=== PATIENT | female | born 1950 | race Caucasian/White ===

== ENCOUNTER 2021-12-30 20:32 | Inpatient (IN) | payer MEDICARE ==
[2021-12-30 23:00] VITALS: BMI 26.4
[2021-12-30] MEDS ORDERED: Fluticasone Propionate Nasal Spray 16 gm Bottle NASAL PRN (23:33)
[2021-12-30] MEDS ORDERED: Ondansetron PF 4 MG/2 ML Vial IVP PRN (23:38)
[2021-12-30] MEDS ORDERED: Guaifenesin DM 100-10/5 ML UDCUP PO PRN (23:38)
[2021-12-30] MEDS ORDERED: Acetaminophen 650 MG Suppository PR PRN (23:38)
[2021-12-30] MEDS ORDERED: Ondansetron ODT 4 MG TAB PO PRN (23:38)
[2021-12-30] MEDS ORDERED: Sodium Chloride 0.9% 1,000 ML IV SCH (23:45)
[2021-12-31] MEDS ORDERED: Melatonin 3 MG TAB PO PRN (01:01)
[2021-12-31] MEDS: Thyroid 30 MG TAB PO SCH (09:25)
[2021-12-31] MEDS: Aspirin Chewable 81 MG TAB PO SCH (09:26)
[2021-12-31] MEDS: PARoxetine 20 MG TAB PO SCH (09:26)
[2021-12-31 09:54] LABS: #Eosinphils 0.1 thou/uL (0.0-0.7); #Lymphocytes 0.7 thou/uL (1.20-3.40); #Monocytes 0.9 thou/uL (0.11-0.59); #Neutrophils 4.8 thou/uL (1.40-6.50); %Basophils 0.7 % (0.0-1.0); %Eosinophils 2.3 % (0.0-10.0); %Lymphocytes 10.1 % (21.0-51.0); %Monocytes 13.9 % (0.0-10.0); %Neutrophils 73.1 % (42.0-75.0); Hemoglobin 13.5 g/dL (12.0-16.0); Mean Corpuscular HGB CONC 32.4 g/dL (32.0-36.0); Mean Corpuscular Volume 98.8 fL (78.0-98.0); Mean Platelet Volume 7.1 fL (7.4-10.4); Platelet Count 264 thou/uL (130-400); Red Blood Cell (RBC) Count 4.21 mill/uL (4.20-5.40); White Blood Cell (WBC) Count 6.5 thou/uL (4.8-10.8)
[2021-12-31 10:05] LABS: ALT (SGPT) 21 U/L (8-55); AST (SGOT) 17 U/L (5-34); Albumin 3.6 g/dL (3.4-4.8); Alkaline Phosphatase 91 U/L (40-110); Anion Gap 14 mmol/L (10-20); BUN (Urea Nitrogen) 22 mg/dL (9.8-20.1); Bilirubin, Total 0.8 mg/dL (0.2-1.2); Calc. Creatinine Clearance 47 mL/min (70-130); Calcium 10.1 mg/dL (7.8-10.44); Carbon Dioxide 24 mmol/L (23-31); Chloride 100 mmol/L (98-107); Estimated GFR 51; Globulin 3.1 g/dL (2.4-3.5); Glucose 104 mg/dL (83-110); Potassium 4.8 mmol/L (3.5-5.1); Protein, Total 6.7 g/dL (5.8-8.1); Sodium 133 mmol/L (136-145)
[2021-12-31] MEDS: Sodium Chloride 0.9% 1,000 ML IV SCH (11:22)
[2021-12-31] MEDS: Acetaminophen 325 MG TAB PO PRN (19:40)
[2022-01-01] MEDS: Sodium Chloride 0.9% 1,000 ML IV SCH (02:31)
[2022-01-01] MEDS: Aspirin Chewable 81 MG TAB PO SCH (09:04)
[2022-01-01] MEDS: Thyroid 30 MG TAB PO SCH (09:04)
[2022-01-01] MEDS: Lisinopril 10 MG TAB PO SCH ×2 (09:04→21:11)
[2022-01-01] MEDS: Amlodipine 5 MG TAB PO SCH (09:04)
[2022-01-01] MEDS: PARoxetine 20 MG TAB PO SCH (09:04)
[2022-01-01] MEDS: Acetaminophen 325 MG TAB PO PRN ×2 (09:07→21:11)
[2022-01-01] MEDS ORDERED: HYDROcodone/Acetaminophen 5/325 mg Tablet PO PRN (12:27)
[2022-01-01] MEDS ORDERED: Lidocaine 5% Patch TD SCH (13:00)
[2022-01-01] MEDS ORDERED: Transdermal Patch Removal TOP SCH (21:00)
[2022-01-02 05:30] LABS: Anion Gap 11 mmol/L (10-20); BUN (Urea Nitrogen) 19 mg/dL (9.8-20.1); Calc. Creatinine Clearance 50 mL/min (70-130); Carbon Dioxide 20 mmol/L (23-31); Cardiac Risk 3.8 (Less than 4.5); Chloride 104 mmol/L (98-107); Cholesterol 165 mg/dl (< 200 Desired); Estimated GFR 54; Glucose 93 mg/dL (83-110); HDL Cholesterol 43 mg/dL (>60 Neg Risk); LDL Cholesterol, Calculated 98 mg/dL; Sodium 131 mmol/L (136-145); Triglycerides 118 mg/dL (Less than 150)
[2022-01-02 08:25] VITALS: BP 140/71; TEMP 97.7
[2022-01-02] MEDS ORDERED: Lidocaine 5% Patch TD SCH (09:00)
[2022-01-02] MEDS: Thyroid 30 MG TAB PO SCH (09:01)
[2022-01-02] MEDS: PARoxetine 20 MG TAB PO SCH (09:01)
[2022-01-02] MEDS: Lisinopril 10 MG TAB PO SCH (09:01)
[2022-01-02] MEDS: Aspirin Chewable 81 MG TAB PO SCH (09:01)
[2022-01-02] MEDS: Amlodipine 5 MG TAB PO SCH (09:01)
== END 2022-01-02 11:32 | disposition home or self-care (01) | DRG 312 ==
LOC: 2SW 20:32 → OBSVTOIN 12-31 16:05
PROVIDERS: ADMIT Hospitalist; ATTEND Hospitalist
DX: R55 Syncope and collapse (principal); N17.9 Acute kidney failure, unspecified; R42 Dizziness and giddiness; R00.1 Bradycardia, unspecified; Z20.822 Contact with and (suspected) exposure to COVID-19; I10 Essential (primary) hypertension; E03.9 Hypothyroidism, unspecified; F32.A Depression, unspecified; T44.7X5A Adverse effect of beta-adrenoreceptor antagonists, initial encounter; T46.1X5A Adverse effect of calcium-channel blockers, initial encounter; Z88.5 Allergy status to narcotic agent; Z88.0 Allergy status to penicillin; Z88.8 Allergy status to other drugs, medicaments and biological substances; Z79.82 Long term (current) use of aspirin; Z79.899 Other long term (current) drug therapy; Z79.890 Hormone replacement therapy; Z90.49 Acquired absence of other specified parts of digestive tract; Z98.42 Cataract extraction status, left eye; Z98.41 Cataract extraction status, right eye
CPT/HCPCS: 36415; 70450; 80048; 80053; 80061; 85025; 93306; 93880; 97139; G0378; J7050

== ENCOUNTER 2022-01-02 14:43 | Observation (INO) | payer MEDICARE ==
[2022-01-02 15:28] LABS: #Basophils 0.1 thou/uL (0.0-0.2); #Eosinphils 0.2 thou/uL (0.0-0.7); #Lymphocytes 0.7 thou/uL (1.20-3.40); #Monocytes 0.8 thou/uL (0.11-0.59); #Neutrophils 9.1 thou/uL (1.40-6.50); %Basophils 0.5 % (0.0-1.0); %Eosinophils 1.5 % (0.0-10.0); %Monocytes 7.3 % (0.0-10.0); %Neutrophils 84.7 % (42.0-75.0); Hemoglobin 13.2 g/dL (12.0-16.0); Mean Corpuscular HGB CONC 33.7 g/dL (32.0-36.0); Mean Corpuscular Hemoglobin 33.7 pg (27.0-31.0); Platelet Count 254 thou/uL (130-400); Red Blood Cell (RBC) Count 3.92 mill/uL (4.20-5.40); White Blood Cell (WBC) Count 10.7 thou/uL (4.8-10.8)
[2022-01-02 15:52] LABS: ALT (SGPT) 17 U/L (8-55); AST (SGOT) 17 U/L (5-34); Albumin 3.3 g/dL (3.4-4.8); Alkaline Phosphatase 82 U/L (40-110); Anion Gap 12 mmol/L (10-20); BUN (Urea Nitrogen) 18 mg/dL (9.8-20.1); Bilirubin, Total 0.4 mg/dL (0.2-1.2); Calc. Creatinine Clearance 0 mL/min (70-130); Calcium 8.9 mg/dL (7.8-10.44); Carbon Dioxide 23 mmol/L (23-31); Chloride 106 mmol/L (98-107); Estimated GFR 44; Globulin 2.5 g/dL (2.4-3.5); Glucose 112 mg/dL (83-110); Potassium 4.3 mmol/L (3.5-5.1); Protein, Total 5.8 g/dL (5.8-8.1); Sodium 137 mmol/L (136-145)
[2022-01-02] MEDS ORDERED: Acetaminophen 500 MG TAB ONE (15:57)
[2022-01-02] MEDS ORDERED: Ondansetron PF 4 MG/2 ML Vial IVP PRN (18:12)
[2022-01-02] MEDS ORDERED: Senokot S 8.6-50 MG TAB PO PRN (18:12)
[2022-01-02] MEDS ORDERED: Ondansetron ODT 4 MG TAB PO PRN (18:12)
[2022-01-02] MEDS ORDERED: Acetaminophen 325 MG TAB PO PRN (18:12)
[2022-01-02] MEDS ORDERED: Sodium Chloride 0.9% 1,000 ML IV SCH (18:30)
[2022-01-02 20:08] VITALS: BMI 27.9
[2022-01-02] MEDS: Famotidine 20 MG TAB PO SCH (21:59)
[2022-01-02] MEDS ORDERED: diphenhydrAMINE 25 MG CAP PO SCH (22:45)
[2022-01-03 04:41] LABS: #Basophils 0.1 thou/uL (0.0-0.2); #Eosinphils 0.2 thou/uL (0.0-0.7); #Lymphocytes 0.8 thou/uL (1.20-3.40); #Monocytes 0.7 thou/uL (0.11-0.59); #Neutrophils 5.1 thou/uL (1.40-6.50); %Basophils 0.8 % (0.0-1.0); %Eosinophils 3.2 % (0.0-10.0); %Lymphocytes 11.3 % (21.0-51.0); %Monocytes 10.2 % (0.0-10.0); %Neutrophils 74.4 % (42.0-75.0); Hemoglobin 12.5 g/dL (12.0-16.0); Mean Corpuscular HGB CONC 33.7 g/dL (32.0-36.0); Mean Corpuscular Hemoglobin 33.7 pg (27.0-31.0); Mean Platelet Volume 6.8 fL (7.4-10.4); Platelet Count 229 thou/uL (130-400); RBC Distribution Width 12.1 % (11.5-14.5); White Blood Cell (WBC) Count 6.8 thou/uL (4.8-10.8)
[2022-01-03] MEDS ORDERED: Lorazepam 1 MG TAB PO SCH ×2 (05:00)
[2022-01-03 05:03] LABS: Anion Gap 11 mmol/L (10-20); BUN (Urea Nitrogen) 14 mg/dL (9.8-20.1); Calc. Creatinine Clearance 56 mL/min (70-130); Calcium 8.9 mg/dL (7.8-10.44); Carbon Dioxide 22 mmol/L (23-31); Chloride 110 mmol/L (98-107); Estimated GFR 59; Glucose 95 mg/dL (83-110); Potassium 4.5 mmol/L (3.5-5.1); Sodium 138 mmol/L (136-145)
[2022-01-03] MEDS ORDERED: Thyroid 60 MG TAB PO SCH (09:00)
[2022-01-03] MEDS ORDERED: PARoxetine 20 MG TAB PO SCH (09:00)
[2022-01-03] MEDS ORDERED: Aspirin Chewable 81 MG TAB PO SCH (09:00)
[2022-01-03] MEDS ORDERED: Enoxaparin Sodium 40 MG/0.4 ML SYRINGE SC SCH (09:00)
[2022-01-03] MEDS: Famotidine 20 MG TAB PO SCH (09:27)
[2022-01-03] MEDS ORDERED: Amlodipine 5 MG TAB PO SCH (09:30)
[2022-01-03 15:49] VITALS: TEMP 97.9
[2022-01-03 16:18] VITALS: BP 124/74
[2022-01-04] MEDS ORDERED: Ergocalciferol 1.25 MG(50,000 UNITS) CAP PO SCH (09:00)
[2022-01-04] MEDS ORDERED: Amlodipine 5 MG TAB PO SCH (09:00)
== END 2022-01-03 16:28 | disposition home or self-care (01) ==
LOC: ERS 14:43 → 2SW 16:56
PROVIDERS: ADMIT Hospitalist; ATTEND Hospitalist
DX: R55 Syncope and collapse (principal); F32.A Depression, unspecified; I10 Essential (primary) hypertension; E03.9 Hypothyroidism, unspecified; Z87.891 Personal history of nicotine dependence; Z79.82 Long term (current) use of aspirin; Z79.890 Hormone replacement therapy; Z79.899 Other long term (current) drug therapy; Z88.0 Allergy status to penicillin; Z88.5 Allergy status to narcotic agent; Z88.8 Allergy status to other drugs, medicaments and biological substances
CPT/HCPCS: 70551; 80048; 80053; 85025 ×2; 93005; 95816; 95819; 95957; 96372; 97116; 97535; 99285; G0378 ×3; 36415; 93010; J1650; J7050

== ENCOUNTER 2022-07-01 12:17 | Outpatient (CLI) | payer MEDICARE, OTHER ==
[2022-07-01 13:27] LABS: #Monocytes 0.9 10x3/uL (0.0-1.1); #Neutrophils 6.5 10x3/uL (1.5-8.4); %Basophils 0.2 % (0.0-2.0); %Lymphocytes 7.8 % (18.0-47.0); %Monocytes 11.2 % (0.0-10.0); %Neutrophils 79.5 % (40.0-75.0); Hemoglobin 12.5 g/dL (12.0-15.5); Mean Corpuscular HGB CONC 33.2 g/dL (32.0-36.0); Mean Corpuscular Hemoglobin 29.6 pg (27.0-33.0); Mean Corpuscular Volume 88.9 fl (81.6-98.3); Mean Platelet Volume 10.4 fl (7.4-10.4); Platelet Count 299 10x3/uL (150-450); RBC Distribution Width 13.2 % (11.5-14.5); Red Blood Cell (RBC) Count 4.23 10x6/uL (3.90-5.03); White Blood Cell (WBC) Count 8.2 10x3/uL (3.5-10.5)
[2022-07-01 13:40] LABS: Anion Gap 14 mmol/L (10-20); BUN (Urea Nitrogen) 24 mg/dL (9.8-20.1); Calc. Creatinine Clearance 0 mL/min (70-130); Calcium 9.8 mg/dL (7.8-10.44); Carbon Dioxide 20 mmol/L (23-31); Chloride 107 mmol/L (98-107); Estimated GFR 65; Glucose 97 mg/dL (83-110); Potassium 4.9 mmol/L (3.5-5.1); Sodium 136 mmol/L (136-145)
== END 2022-07-01 12:18 | disposition home or self-care (01) ==
LOC: LABBT 12:17
PROVIDERS: ATTEND Orthopaedic Surgery
DX: Z01.812 Encounter for preprocedural laboratory examination (principal); S52.592A Other fractures of lower end of left radius, initial encounter for closed fracture
CPT/HCPCS: 80048; 85025; 93005; 93010

== ENCOUNTER 2022-07-02 10:29 | Day surgery (SDC) | payer MEDICARE, OTHER ==
[2022-07-01 11:03] VITALS: BMI 23.9
[2022-07-02] MEDS ORDERED: Midazolam HCl 2 mg/2 ml Vial ONE (11:18)
[2022-07-02] MEDS ORDERED: Fentanyl 100 MCG/2 ML VIAL ONE (11:18)
[2022-07-02] MEDS ORDERED: Bupivacaine PF 0.5% 30 ML VIAL ONE (11:18)
[2022-07-02] MEDS ORDERED: Ropivacaine 0.5% HCl/PF (150 MG/30 ML VIAL) ONE (11:19)
[2022-07-02] MEDS ORDERED: fentaNYL PF 100 MCG/2 ML SYRINGE ONE (12:44)
[2022-07-02] MEDS ORDERED: Sodium Chloride 0.9% 100 ML ONE (12:49)
[2022-07-02] MEDS ORDERED: CEFAZOLIN 2 GM VIAL ONE (12:49)
[2022-07-02] MEDS ORDERED: Propofol 500 MG/50 ML VIAL ONE (13:11)
== END 2022-07-02 16:14 | disposition home or self-care (01) ==
LOC: SDC 10:29
PROVIDERS: ATTEND Orthopaedic Surgery
PROC: 0PSJ04Z Reposition Left Radius with Internal Fixation Device, Open Approach (ICD-10-PCS; principal; 2022-07-02)
DX: S52.502A Unspecified fracture of the lower end of left radius, initial encounter for closed fracture (principal); E78.00 Pure hypercholesterolemia, unspecified; I10 Essential (primary) hypertension; E07.9 Disorder of thyroid, unspecified; Z87.891 Personal history of nicotine dependence; Z79.82 Long term (current) use of aspirin; Z79.890 Hormone replacement therapy; Z79.899 Other long term (current) drug therapy; Z88.0 Allergy status to penicillin; Z88.5 Allergy status to narcotic agent; Z88.8 Allergy status to other drugs, medicaments and biological substances; W18.2XXA Fall in (into) shower or empty bathtub, initial encounter
CPT/HCPCS: C1713; J2250; J2704; J2795; J3010; J3490; S0020

== ENCOUNTER 2024-04-24 16:15 | Inpatient (IN) | payer MEDICARE, OTHER ==
[2024-04-24 16:39] VITALS: BMI 24.7
[2024-04-24] MEDS ORDERED: Calcium Carbonate 500 MG ChewTAB PO PRN (17:32)
[2024-04-24] MEDS ORDERED: Ondansetron ODT 4 MG TAB PO PRN (17:32)
[2024-04-24] MEDS ORDERED: Senokot S 8.6-50 MG TAB PO PRN (17:32)
[2024-04-24] MEDS: Sodium Chloride 0.9% 1,000 ML IV SCH (17:48)
[2024-04-24] MEDS: Ondansetron PF 4 MG/2 ML Vial IVP PRN (20:15)
[2024-04-24] MEDS: Melatonin 3 MG TAB PO PRN (20:23)
[2024-04-25 05:56] LABS: #Basophils Less than 0.03 10x3/uL (0.0-0.2); %Basophils 0.1 % (0.0-1.0); %Eosinophils 6.7 % (0.0-10.0); %Lymphocytes 3.2 % (21.0-51.0); %Monocytes 6.4 % (0.0-10.0); %Neutrophils 83.2 % (42.0-75.0); Hematocrit 32.8 % (36.0-47.0); Hemoglobin 11.1 g/dL (12.0-16.0); Mean Corpuscular HGB CONC 33.8 g/dL (32.0-36.0); Mean Corpuscular Hemoglobin 32.9 pg (27.0-31.0); Mean Corpuscular Volume 97.3 fL (78.0-98.0); Mean Platelet Volume 10.1 fL (7.4-10.4); Platelet Count 133 10x3/uL (130-400); RBC Distribution Width 12.9 % (11.5-14.5); Red Blood Cell (RBC) Count 3.37 mill/uL (4.20-5.40)
[2024-04-25 06:40] LABS: Anion Gap 13 mmol/L (10-20); BUN (Urea Nitrogen) 12 mg/dL (9.8-20.1); Calc. Creatinine Clearance 50 mL/min (70-130); Carbon Dioxide 18 mmol/L (23-31); Chloride 111 mmol/L (98-107); Estimated GFR 61; Glucose 94 mg/dL (83-110); Potassium 4.3 mmol/L (3.5-5.1); Sodium 138 mmol/L (136-145)
[2024-04-25] MEDS: Cyanocobalamin (Vitamin B-12) 1,000 MCG TAB PO SCH (09:08)
[2024-04-25] MEDS: Aspirin Chewable 81 MG TAB PO SCH (09:08)
[2024-04-25] MEDS: Folic Acid 1 MG TAB PO SCH (09:09)
[2024-04-25] MEDS: Enoxaparin 40 MG (0.4 mL) SYRINGE SC SCH (09:09)
[2024-04-25] MEDS: Thyroid 60 MG TAB PO SCH (09:09)
[2024-04-25] MEDS: PARoxetine 20 MG TAB PO SCH (09:09)
[2024-04-25] MEDS: cefTRIAXone\\ROCEPHIN 1 GM in Sodium Chloride 0.9% 100 ML IVPB SCH (13:26)
[2024-04-26] MEDS ORDERED: cefTRIAXone (ROCEPHIN) 1 GM VIAL ONE (15:30)
[2024-04-26] MEDS ORDERED: Acetaminophen 325 MG TAB ONE (18:30)
[2024-04-27] MEDS ORDERED: Thyroid 60 MG TAB ONE (10:37)
[2024-04-27] MEDS ORDERED: Aspirin Chewable 81 MG TAB ONE (10:37)
[2024-04-27] MEDS ORDERED: Acetaminophen 325 MG TAB ONE (10:37)
[2024-04-27] MEDS ORDERED: Folic Acid 1 MG TAB ONE (10:37)
[2024-04-27] MEDS ORDERED: Cyanocobalamin (Vitamin B-12) 1,000 MCG TAB ONE (10:37)
[2024-04-27] MEDS ORDERED: PARoxetine 20 MG TAB ONE (10:37)
[2024-04-27] MEDS ORDERED: cefTRIAXone (ROCEPHIN) 1 GM VIAL ONE (13:35)
[2024-04-28] MEDS: Verapamil 120 MG SR.TAB PO SCH ×2 (00:57→12:02)
[2024-04-28] MEDS: Nebivolol HCl 5 MG TAB ONE ×2 (00:57→12:00)
[2024-04-28] MEDS: Spironolactone 25 MG TAB PO SCH ×2 (00:57→12:01)
[2024-04-28 06:16] LABS: #Basophils 0.07 10x3/uL (0.0-0.2); %Basophils 1.1 % (0.0-1.0); %Eosinophils 19.2 % (0.0-10.0); %Lymphocytes 27.3 % (21.0-51.0); %Monocytes 10.4 % (0.0-10.0); %Neutrophils 39.5 % (42.0-75.0); Hematocrit 33.2 % (36.0-47.0); Hemoglobin 11.3 g/dL (12.0-16.0); Mean Corpuscular Hemoglobin 32.5 pg (27.0-31.0); Mean Corpuscular Volume 95.4 fL (78.0-98.0); Mean Platelet Volume 9.7 fL (7.4-10.4); Platelet Count 193 10x3/uL (130-400); RBC Distribution Width 12.7 % (11.5-14.5); Red Blood Cell (RBC) Count 3.48 mill/uL (4.20-5.40)
[2024-04-28 07:04] LABS: Anion Gap 14 mmol/L (10-20); BUN (Urea Nitrogen) 7 mg/dL (9.8-20.1); Calc. Creatinine Clearance 50 mL/min (70-130); Calcium 8.9 mg/dL (7.8-10.44); Carbon Dioxide 22 mmol/L (23-31); Chloride 110 mmol/L (98-107); Estimated GFR 60; Glucose 97 mg/dL (83-110); Sodium 142 mmol/L (136-145)
[2024-04-28] MEDS ORDERED: Spironolactone 25 MG TAB PO SCH (08:00)
[2024-04-28] MEDS ORDERED: Ergocalciferol 1.25 MG(50,000 UNITS) CAP PO SCH (09:00)
[2024-04-28] MEDS ORDERED: Verapamil 180 MG ER.TAB PO SCH (09:00)
[2024-04-28] MEDS ORDERED: Verapamil 120 MG SR.TAB PO SCH (09:00)
[2024-04-28] MEDS: Nebivolol HCl 5 MG TAB PO SCH (11:14)
[2024-04-28] MEDS: Ergocalciferol 1.25 MG(50,000 UNITS) CAP PO SCH (12:33)
[2024-04-28] MEDS: Acetaminophen 325 MG TAB PO PRN (19:36)
[2024-04-29] MEDS: Nebivolol HCl 5 MG TAB ONE (09:51)
[2024-04-30] MEDS: Nebivolol HCl 5 MG TAB ONE (08:41)
[2024-04-30 11:06] VITALS: BP 143/70; TEMP 98.5
[2024-05-02] MEDS ORDERED: Ergocalciferol 1.25 MG(50,000 UNITS) CAP PO SCH (09:00)
[2024-05-08 09:12] LABS: Anion Gap 14 mmol/L (10-20); BUN (Urea Nitrogen) 8 mg/dL (9.8-20.1); Calc. Creatinine Clearance 49 mL/min (70-130); Calcium 8.4 mg/dL (7.6-10.4); Carbon Dioxide 17 mmol/L (23-31); Chloride 113 mmol/L (98-107); Estimated GFR 59; Glucose 91 mg/dL (83-110); Potassium 3.6 mmol/L (3.5-5.1); Sodium 140 mmol/L (136-145)
[2024-05-08 09:13] LABS: Hemoglobin 10.8 g/dL (12.0-16.0); Red Blood Cell (RBC) Count 3.35 mill/uL (4.20-5.40)
[2024-05-08 09:14] LABS: %Basophils 0.2 % (0.0-1.0); %Eosinophils 12.8 % (0.0-10.0); %Lymphocytes 15.1 % (21.0-51.0); %Monocytes 9.9 % (0.0-10.0); %Neutrophils 61.2 % (42.0-75.0); Hematocrit 31.9 % (36.0-47.0); Mean Corpuscular HGB CONC 33.9 g/dL (32.0-36.0); Mean Corpuscular Hemoglobin 32.2 pg (27.0-31.0); Mean Corpuscular Volume 95.2 fL (78.0-98.0); Mean Platelet Volume 10.4 fL (7.4-10.4); Platelet Count 142 10x3/uL (130-400); RBC Distribution Width 12.8 % (11.5-14.5)
[2024-05-08 09:15] LABS: #Basophils Less than 0.03 10x3/uL (0.0-0.2)
== END 2024-04-30 11:29 | disposition home or self-care (01) | DRG 872 ==
LOC: T4-A 16:15 → OBSVTOIN 17:32
PROVIDERS: ADMIT Internal Medicine; ATTEND Internal Medicine
DX: A41.51 Sepsis due to Escherichia coli [E. coli] (principal); N30.00 Acute cystitis without hematuria; N17.9 Acute kidney failure, unspecified; E78.5 Hyperlipidemia, unspecified; I10 Essential (primary) hypertension; E03.9 Hypothyroidism, unspecified; M81.0 Age-related osteoporosis without current pathological fracture; F32.A Depression, unspecified; Z88.5 Allergy status to narcotic agent; Z88.0 Allergy status to penicillin; Z90.49 Acquired absence of other specified parts of digestive tract; Z90.710 Acquired absence of both cervix and uterus; Z98.890 Other specified postprocedural states; Z87.891 Personal history of nicotine dependence; Z79.899 Other long term (current) drug therapy; Z79.82 Long term (current) use of aspirin
CPT/HCPCS: 36415; 36416; 80048; 85025; 87040; J0696; J1650; J2405; J7030